=== PATIENT | female | born 1930 | race African-American/Black ===

== ENCOUNTER → 2017-02-13 | Outpatient (CLI) | payer MEDICARE ==
[~2017-02-13] MED LIST: ACETAMINOPHEN PO; ALPRAZOLAM0.25 MG PO; AMLODIPINE BESY10 MG PO; AMLODIPINE BESYL5 MG PO; ASCORBIC ACID500 M2 PO; ASPIRIN EC81 M1 PO; ASPIRIN PO; CARDIZEM CD PO; CITRACAL + D CA1 TA1 PO; CITRACAL PLUS T1 TAB PO; CRESTOR PO; CYANOCOBAL1000 MCG/M INJ; DARVOCET-N 1001 TAB PO; DIOVAN HCT 160-1 TAB PO; DIOVAN HCT 160/1 TAB PO; KLONOPIN PO; KLONOPIN0.5 MG PO; METOPROLOL SUCC50 MG PO; MULTI-VITAMIN1 TAB PO; PRILOSEC PO; PROPAFENONE PO; RECLAST IM; RETAINE MGD EY1 EACH OU; RYTHMOL150 MG PO; TOPROL XL PO; TRAMADOL HCL50 M1 PO; TRAMADOL HCL50 M2 PO; VITAL-D RX TABL1 TAB; VITAMIN D31000 UNI1 PO; XALATAN OU; [UNRECOGNIZED DRUG - OTHER] PO
--- NOTE | ~2017-02-13 | MY11 ---
[facility] A Service of [facility] RADIOLOGY TEXT RESULTS PATIENT: HASMUKH KANG LOCATION: [facility] : 32 UNIT #: [id number] AGE: [address]: Joel Argueta MD SEX: F ORDER DR: [id number] [facility] [address] [place], [place] [address] [id number] O MR#: [id number] Acc #: [id number] NAME: HASMUKH KANG : 1930 SEX: F STUDY DATE/TIME: 02/13/2017 16:56 UNIT: [facility] ROOM: STUDY DESCRIPTION: MY Mammogram Screening Dig Lauro Attending Physician: Joel Argueta Jr., M.D. Ordering Physician: Joel Argueta Jr., M.D. Primary Care Physician: Joel Argueta Jr., M.D. MEDICAL IMAGING REPORT This report is preliminary unless electronic signature is present EXAM Digital screening mammogram 02/13/2017. [facility] HISTORY 86-year-old woman with strong family history, sister age 27. Multiple prior left breast biopsies. Annual screening. COMPARISON: Mammograms date to 12/11/2007 with most recent 09/26/2012. Digital imaging of each breast was completed utilizing screening protocol. An additional exaggerated craniocaudal view of the left breast is included. Multiple biopsy markers are placed. Review includes FDA-approved CAD device. Breast parenchyma is predominantly fatty replaced. Occasional benign calcification with no suspicious mass. There is no suspicious architectural deformity. IMPRESSION Stable benign mammogram. Annual screening recommended. Patients over the age of 40 are entered into a reminder system with target due date for the next mammogram. A result letter will also be sent to the patient. BIRADS: 2 - benign findings Dictated by... Jasiel Randall M.D. THIS IS AN ELECTRONICALLY VERIFIED REPORT Jasiel Randall M.D. at 02/14/2017 11:14 AM JBB/tna [facility] A Service of [facility] RADIOLOGY TEXT RESULTS PATIENT: HASMUKH KANG LOCATION: [facility] : 32 UNIT #: [id number] AGE: [address]: Joel Argueta MD SEX: F ORDER DR: TD: 02/14/2017 08:20 JOB #: [id number] MEDICAL IMAGING REPORT Page 1 of 1 COPY
== END | disposition home or self-care (01) ==
LOC: CWCC 16:38
DX: Z12.31 Encounter for screening mammogram for malignant neoplasm of breast (principal); Z80.3 Family history of malignant neoplasm of breast; Z98.890 Other specified postprocedural states
CPT/HCPCS: G0202

== ENCOUNTER → 2017-02-27 | Outpatient (CLI) | payer MEDICARE ==
[2017-02-27 13:21] LABS: BUN/CREATININE RATIO 11.81; CALCIUM SERUM 9.6 mg/dL (8.4-10.2); CREATININE SERUM 1.1 mg/dL (0.6-1.4); GLOM FILT RATE Estimated 53.4 mL/min (>60); POTASSIUM 4.1 mmol/L (3.5-5.1)
[2017-02-27 13:33] LABS: HEMATOCRIT 39.9 % (35.0-45.0); HEMOGLOBIN 12.7 gm/dL (12.0-16.0); MEAN CELL VOLUME 84.3 FL (83-96); MEAN CORPUSCULAR HEMOGLOBIN 26.8 PG (28-34); MEAN CORPUSCULAR HGB CONC 31.9 g/dL (30-36); MEAN PLATELET VOLUME 8.2 FL (6.5-11.5); RED BLOOD COUNT 4.73 X10e (3.90-5.30); RED CELL DISTRIBUTION WIDTH 14.4 % (11.0-15.5); WHITE BLOOD COUNT 5.9 X10e3 (4.0-10.5)
== END | disposition home or self-care (01) ==
LOC: CAMB 12:05
PROVIDERS: Specialist
DX: Z01.812 Encounter for preprocedural laboratory examination (principal); H66.91 Otitis media, unspecified, right ear
CPT/HCPCS: 36415; 80048; 85027

== ENCOUNTER → 2017-03-06 | Day surgery (SDC) | payer MEDICARE ==
--- NOTE | ~2017-03-06 | OR ---
Unit #: [id number] #: [id number] Patient: HASMUKH KANG [id number] [address] [address] [id number] O MR#: [id number] NAME: HASMUKH KANG ROOM: Date of Procedure: 03/06/2017 Admission Date: 03/06/2017 Surgeon: Behzad Aguilar M.D. : 1930 Attending Physician: Behzad Aguilar M.D. Primary Care Physician: Joel Argueta Jr., M.D. OPERATIVE REPORT PREOPERATIVE DIAGNOSIS Chronic otitis media with effusion on the right. POSTOPERATIVE DIAGNOSIS Chronic otitis media with effusion on the right. PROCEDURE PERFORMED Right-sided ear tubes. ANESTHESIA Local MAC anesthesia. COMPLICATIONS None. FINDINGS Included a right-sided middle ear fluid. INDICATIONS FOR PROCEDURE This is an 86-year-old female, who has had a long history of chronic otitis media with effusion. She presents today for myringotomy tube on the right. DESCRIPTION OF PROCEDURE The patient was placed supine on the operating table. Anesthesia was achieved by local MAC anesthesia. Speculum was placed in the right ear. Myringotomy was made in the anterior-inferior quadrant. Serous effusion was suctioned. Ultra-Evelyne collar button tube was placed. Floxin and Afrin drops placed afterwards. The patient was awakened and transferred to recovery in stable condition. Dictated by... Supriya Aj/marciano TD: 03/07/2017 01:25 JOB #: [id number] Unit #: [id number] #: [id number] Patient: HASMUKH KANG OPERATIVE REPORT Page 1 of 1 X Behzad Aguilar MD PROCEDURE OPERATIVE NOTE
== END | disposition home or self-care (01) ==
LOC: CSUR 07:41
PROVIDERS: Specialist
PROC: 099500Z Drainage of Right Middle Ear with Drainage Device, Open Approach (ICD-10-PCS; principal; 2017-03-06 11:30)
DX: H65.21 Chronic serous otitis media, right ear (principal); K21.9 Gastro-esophageal reflux disease without esophagitis; N18.9 Chronic kidney disease, unspecified; D63.1 Anemia in chronic kidney disease; Z79.899 Other long term (current) drug therapy; I48.91 Unspecified atrial fibrillation; J45.909 Unspecified asthma, uncomplicated; M19.90 Unspecified osteoarthritis, unspecified site; I12.9 Hypertensive chronic kidney disease with stage 1 through stage 4 chronic kidney disease, or unspecified chronic kidney disease; M79.7 Fibromyalgia; D47.3 Essential (hemorrhagic) thrombocythemia; G62.9 Polyneuropathy, unspecified; Z96.659 Presence of unspecified artificial knee joint; Z82.49 Family history of ischemic heart disease and other diseases of the circulatory system; Z88.1 Allergy status to other antibiotic agents; Z88.8 Allergy status to other drugs, medicaments and biological substances; Z90.710 Acquired absence of both cervix and uterus; Z88.5 Allergy status to narcotic agent
CPT/HCPCS: J0171; J3010

== ENCOUNTER → 2017-07-23 | Outpatient (CLI) | payer MEDICARE ==
--- NOTE | ~2017-07-23 | CT71 ---
[facility] A Service of [facility] RADIOLOGY TEXT RESULTS PATIENT: HASMUKH KANG LOCATION: [facility] : 32 UNIT #: [id number] AGE: [address]: Joel Argueta MD SEX: F ORDER DR: [id number] [facility] [address] [place], [place] [address] [id number] O MR#: [id number] [facility] #: [id number] NAME: HASMUKH KANG : 1930 SEX: F STUDY DATE/TIME: 07/23/2017 15:20 UNIT: [facility] ROOM: STUDY DESCRIPTION: CT Head Wo Contrast Attending Physician: Joel Argueta Jr., M.D. Referring Physician: Joel Argueta Jr., M.D. Ordering Physician: Joel Argueta Jr., M.D. Primary Care Physician: Joel Argueta Jr., M.D. MEDICAL IMAGING REPORT This report is preliminary unless electronic signature is present EXAM Head CT no contrast 07/23/2017. PROCEDURE Axial unenhanced head CT. This CT exam was performed with one or more of the following radiation dose reduction techniques: automatic exposure control, adjustment of mA and/or kV according to patient size, and iterative reconstruction. COMPARISON Most recent prior head CT 07/01/2014. HISTORY 4- to 5-month history of headache and left eye pain. Stumbling and memory loss for 1 year. FINDINGS There is degenerative change at the temporomandibular joints, right greater than left, but the skull base and calvaria are otherwise unremarkable. There is no intracranial hemorrhage or mass and no hydrocephalus or extraaxial fluid collection. There is moderate nonspecific white matter change and volume loss, but no mass or midline shift or other acute abnormality is seen. The extracranial soft tissues are unremarkable. IMPRESSION Volume loss and nonspecific white matter change; no acute abnormality and no substantial interval change since the prior head CT of 07/01/2014. Dictated by... Abdullahi Sun M.D. [facility] A Service of [facility] RADIOLOGY TEXT RESULTS PATIENT: HASMUKH KANG LOCATION: [facility] : 32 UNIT #: [id number] AGE: [address]: Joel Argueta MD SEX: F ORDER DR: THIS IS AN ELECTRONICALLY VERIFIED REPORT Abdullahi Sun M.D. at 07/26/2017 2:09 PM FERMÍN/bhanu TD: 07/24/2017 15:12 JOB #: [id number] MEDICAL IMAGING REPORT Page 1 of 1 COPY
== END | disposition home or self-care (01) ==
LOC: CCAT 07-18 17:20
DX: R51 Headache (principal); R41.3 Other amnesia; R93.0 Abnormal findings on diagnostic imaging of skull and head, not elsewhere classified
CPT/HCPCS: 70450